=== PATIENT | male | born 1945 | race Caucasian/White ===

== ENCOUNTER 2016-12-20 12:37 | Emergency (ER) | payer OTHER ==
[~2016-12-20] VITALS: Ht 175.3 cm; Wt 91.2 kg
[~2016-12-20 12:37] MED LIST: ADVIL100 M2 PO; BAYER CHEWABLE81 MG PO; COLACE 100 MG100 MG PO; CYCLOBENZAPRINE10 MG PO; FLONASE 0.05%50 MCG NASAL; HYDROCODON-ACE1 EACH PO; MECLIZINE HCL12.5 MG PO; PLAVIX 75 MG TA75 MG PO; PRINIVIL20 MG PO; PROTONIX40 M2 PO; TAMSULOSIN HCL0.4 MG PO; TOPROL XL100 MG PO; ZETIA10 MG PO
[2016-12-20] MEDS ORDERED: HYDROCODONE-AP1 EAC6 PO (14:18)
[2016-12-20] MEDS ORDERED: SENOKOT-S1 TA1 PO (14:18)
[2016-12-20 15:01] VITALS: BP 134/65
== END 2016-12-20 15:06 | disposition home or self-care (01) ==
LOC: ER 12:37
DX: S01.81XA Laceration without foreign body of other part of head, initial encounter (principal); I10 Essential (primary) hypertension; I25.10 Atherosclerotic heart disease of native coronary artery without angina pectoris; I25.2 Old myocardial infarction; Z95.1 Presence of aortocoronary bypass graft; Z87.891 Personal history of nicotine dependence; Z98.890 Other specified postprocedural states; F10.99 Alcohol use, unspecified with unspecified alcohol-induced disorder; Z88.1 Allergy status to other antibiotic agents; Z88.8 Allergy status to other drugs, medicaments and biological substances

== ENCOUNTER 2017-06-21 03:36 | Emergency (ER) | payer OTHER ==
[~2017-06-21] VITALS: Ht 175.3 cm; Wt 93.4 kg
[~2017-06-21 03:36] MED LIST changes: +HYDROCODONE-AP1 EAC6 PO; +SENOKOT-S1 TA1 PO
[2017-06-21 04:02] LABS: ABSOLUTE NEUTROPHILS 3.7 thou/uL (1.4-8.2); BASOPHILS 0.9 % (0.0-2.0); EOSINOPHILS 2.8 % (0.0-3.0); HEMATOCRIT 49.1 % (42.0-52.0); HEMOGLOBIN 16.5 gm/dL (14.0-18.0); LYMPHOCYTES 31.4 % (24.0-44.0); MCH 29.1 pg (26.0-34.0); MCHC 33.6 g/dL (28.0-37.0); MCV 86.6 fL (80.0-100.0); MONOCYTES 8.9 % (1.0-8.0); PLATELET COUNT 248 thou/uL (150-400); RBC 5.66 mil/uL (4.50-6.00); RDW 13.5 % (10.5-14.5); WBC 6.5 thou/uL (4.0-11.0)
[2017-06-21] MEDS ORDERED: FLEXERIL PO (04:07)
[2017-06-21] MEDS ORDERED: VITAMIN D1000 UNI1 PO (04:08)
[2017-06-21] MEDS ORDERED: CALCIUM 500 +1 EAC5 PO (04:08)
[2017-06-21 04:10] LABS: CALCIUM 9.3 mg/dL (8.5-10.1); CREATININE 1.1 mg/dL (0.7-1.3); POTASSIUM 4.7 mmol/L (3.5-5.1)
[2017-06-21 04:16] LABS: ALBUMIN 3.8 g/dL (3.4-5.0); TOTAL BILIRUBIN 0.4 mg/dL (<0.1-1.0); TOTAL PROTEIN 7.3 g/dL (6.4-8.2)
[2017-06-21] MEDS ORDERED: HYDROCODONE-AP1 EAC6 PO (05:22)
[2017-06-21] MEDS ORDERED: ONDANSETRON HCL4 M2 PO (05:22)
[2017-06-21] MEDS ORDERED: FLOMAX0.4 MG PO (05:22)
[2017-06-21 05:29] VITALS: BP 132/83
== END 2017-06-21 05:30 | disposition home or self-care (01) ==
LOC: ER 03:36
PROVIDERS: Emergency Medicine
DX: N20.0 Calculus of kidney (principal); I10 Essential (primary) hypertension; I25.2 Old myocardial infarction; Z87.891 Personal history of nicotine dependence; Z88.2 Allergy status to sulfonamides; Z95.1 Presence of aortocoronary bypass graft